=== PATIENT | male | born 1990 | race Caucasian/White ===

== ENCOUNTER → 2022-05-28 14:56 | Outpatient (CLI) | payer SELFPAY ==
[2022-05-28 20:11] LABS: Barbiturates Screen,Urine Negative ng/ml (<200); Benzodiazepines Screen,Urine Negative ng/ml (<200)
[2022-05-28 20:12] LABS: Amphetamine/Metha Screen,Urine Negative ng/ml (<1000)
[2022-05-28 20:13] LABS: Cannabinoid Screen,Urine Positive ng/ml (<50)
[2022-05-28 20:14] LABS: Cocaine Screen,Urine Negative ng/ml (<300); Methadone Screen,Urine Negative ng/ml (<300)
[2022-05-28 20:15] LABS: Opiate Screen,Urine Negative ng/ml (<300)
[2022-05-28 20:16] LABS: Phencyclidine Screen,Urine Negative ng/ml (<25)
[2022-06-02 20:37] LABS: Buprenorphine, Urine Positive (Cutoff=10)
== END ==
PROVIDERS: PCP Nurse Practitioner; Visit Provider Nurse Practitioner
DX: Z79.899 Other long term (current) drug therapy (principal)
CPT/HCPCS: 80305; 80307

== ENCOUNTER → 2023-01-09 08:35 | Outpatient (CLI) | payer SELFPAY ==
[2023-01-09 10:16] LABS: Amphetamine/Metha Screen,Urine Negative ng/ml (<1000)
[2023-01-09 10:17] LABS: Barbiturates Screen,Urine Negative ng/ml (<200)
[2023-01-09 10:18] LABS: Benzodiazepines Screen,Urine Negative ng/ml (<200)
[2023-01-09 10:20] LABS: Cannabinoid Screen,Urine Positive ng/ml (<50); Cocaine Screen,Urine Negative ng/ml (<300)
[2023-01-09 10:21] LABS: Methadone Screen,Urine Negative ng/ml (<300); Opiate Screen,Urine Negative ng/ml (<300)
[2023-01-09 10:22] LABS: Phencyclidine Screen,Urine Negative ng/ml (<25)
[2023-01-12 11:08] LABS: 6-Acetylmorphine Negative ng/mL (CUTOFF:10); Amphetamines Negative ng/mL (CUTOFF:300); Barbiturates Negative ng/mL (CUTOFF:200); Benzodiazepines Negative ng/mL (CUTOFF:50); Buprenorphine ++POSITIVE++ ng/mL (CUTOFF:5); Buprenorphine 74 (.); Carisoprodol Negative ng/mL (CUTOFF:100); Cocaine Metabolite Negative ng/mL (CUTOFF:150); Ethanol Biomarkers Negative ng/mL (CUTOFF:500); Fentanyl Negative ng/mL (CUTOFF:2.0); Gabapentin Negative ug/mL (CUTOFF:1.0); Marijuana MTB (THC) ++POSITIVE++ ng/mL (CUTOFF:20); Methadone Negative ng/mL (CUTOFF:100); N/B Ratio 3.78 (>=0.3); Naloxone 80 (.); Nitrites Negative (NEGATIVE); Norbuprenorphine 282 (.); Opiates Negative ng/mL (CUTOFF:100); Phencyclidine Negative ng/mL (CUTOFF:25); Propoxyphene Negative ng/mL (CUTOFF:300); Tapentadol Negative ng/mL (CUTOFF:200); Tramadol Negative ng/mL (CUTOFF:200); Urine pH 5.7 (4.5-8.9)
[2023-01-27 23:37] LABS: Acetyl Fentanyl Negative; Acetyl Norfentanyl Negative; Alfentanil Negative; Fentanyl Negative; Norfentanyl Negative; Norsufentanil Negative; Sufentanil Negative
== END ==
PROVIDERS: Visit Provider Nurse Practitioner Family
DX: F10.20 Alcohol dependence, uncomplicated (principal); F11.21 Opioid dependence, in remission; F12.20 Cannabis dependence, uncomplicated; F34.1 Dysthymic disorder; F41.1 Generalized anxiety disorder; F17.200 Nicotine dependence, unspecified, uncomplicated; Z79.899 Other long term (current) drug therapy
CPT/HCPCS: 80305; 80307; 80354

== ENCOUNTER → 2023-02-07 09:22 | Outpatient (CLI) | payer SELFPAY ==
[2023-02-14 17:35] LABS: Phencyclidine, Urine Negative (Cutoff=25)
[2023-02-20 08:53] LABS: Alprazolam Negative (Cutoff=100); Barbiturates Negative (Cutoff=200); Benzodiazepines Negative ng/mL (Cutoff=100); Buprenorphine Positive (.); Cannabinoid Positive (.); Carboxy THC (GC/MS) 71 ng/mL (Cutoff=10); Clonazepam Negative (Cutoff=100); Flurazepam Negative (Cutoff=100); Lorazepam Negative (Cutoff=100); Midazolam Negative (Cutoff=100); Norbuprenorphine Positive (.); Opiates Negative ng/mL (Cutoff=100); Temazepam Negative (Cutoff=100); Triazolam Negative (Cutoff=100)
[2023-02-26 14:08] LABS: Methadone Negative
[2023-02-26 14:10] LABS: Acetyl Fentanyl Negative; Acetyl Norfentanyl Negative; Alfentanil Negative; Fentanyl Negative; Norfentanyl Negative; Norsufentanil Negative; Sufentanil Negative
== END ==
LOC: LAB 09:23
PROVIDERS: Visit Provider Nurse Practitioner Family
DX: Z13.89 Encounter for screening for other disorder (principal); F10.20 Alcohol dependence, uncomplicated; F11.21 Opioid dependence, in remission; F12.20 Cannabis dependence, uncomplicated; F41.1 Generalized anxiety disorder; F17.200 Nicotine dependence, unspecified, uncomplicated; Z79.899 Other long term (current) drug therapy
CPT/HCPCS: 80345; 80346; 80348; 80349; 80353; 80354; 80358; 80361; 83992; G0480

== ENCOUNTER → 2023-06-26 09:26 | Outpatient (CLI) | payer SELFPAY ==
[2023-06-26 14:57] LABS: Amphetamine/Metha Screen,Urine Negative ng/ml (<1000)
[2023-06-26 14:59] LABS: Barbiturates Screen,Urine Negative ng/ml (<200); Cannabinoid Screen,Urine Positive ng/ml (<50)
[2023-06-26 15:00] LABS: Benzodiazepines Screen,Urine Negative ng/ml (<200)
[2023-06-26 15:01] LABS: Cocaine Screen,Urine Negative ng/ml (<300); Opiate Screen,Urine Negative ng/ml (<300)
[2023-06-26 15:02] LABS: Methadone Screen,Urine Negative ng/ml (<300)
[2023-06-26 15:03] LABS: Phencyclidine Screen,Urine Negative ng/ml (<25)
== END ==
LOC: LAB 09:28
PROVIDERS: Nurse Practitioner Family
DX: F11.20 Opioid dependence, uncomplicated (principal)
CPT/HCPCS: 36415; 80305

== ENCOUNTER 2023-07-18 09:00 | Outpatient (CLI) | payer SELFPAY ==
[2023-07-18 10:07] LABS: Amphetamine/Metha Screen,Urine Negative ng/ml (<1000); Barbiturates Screen,Urine Negative ng/ml (<200); Benzodiazepines Screen,Urine Negative ng/ml (<200); Cannabinoid Screen,Urine Negative ng/ml (<50); Cocaine Screen,Urine Negative ng/ml (<300); Methadone Screen,Urine Negative ng/ml (<300); Opiate Screen,Urine Negative ng/ml (<300); Phencyclidine Screen,Urine Negative ng/ml (<25)
== END 2023-07-18 23:59 ==
PROVIDERS: Visit Provider Nurse Practitioner Family
DX: F11.20 Opioid dependence, uncomplicated (principal)
CPT/HCPCS: 80307